=== PATIENT | female | born 1960 | race Caucasian/White ===

== ENCOUNTER → 2018-03-12 | Outpatient (CLI) | payer BC ==
--- NOTE | 2018-03-14 13:14 | MM ---
Reason for exam: screening (asymptomatic). Last mammogram was performed 4 years and 10 months ago. History: Patient is postmenopausal and had first child at age 44. Took hormonal contraceptives for 20 years. Physical Findings: A clinical breast exam by your physician is recommended on an annual basis and results should be correlated with mammographic findings. MG 3D Screening Mammo W/Cad Bilateral CC and MLO view(s) were taken. Prior study comparison: May 13, 2013, bilateral digital screening mammo w/CAD. April 11, 2006, workup right diagnostic mammogram. The breast tissue is heterogeneously dense. This may lower the sensitivity of mammography. No significant changes when compared with prior studies. ASSESSMENT: Benign, BI-RAD 2 RECOMMENDATION: Routine screening mammogram of both breasts in 1 year.
== END | disposition home or self-care (01) ==
LOC: RADMAMWWP 15:00
PROVIDERS: ATTEND Family Medicine
DX: Z12.31 Encounter for screening mammogram for malignant neoplasm of breast (principal)
CPT/HCPCS: 77063; 77067

== ENCOUNTER → 2018-08-08 | Outpatient (CLI) | payer BC ==
--- NOTE | 2018-08-08 21:58 | MR ---
EXAMINATION TYPE: MR tspine/lspine wo con DATE OF EXAM: 08/08/2018 COMPARISON: None HISTORY: Thoracic and Lumbar Radiculopathy CONTRAST: Performed utilizing 0 mL intravenous Gadavist gadolinium contrast. TECHNIQUE: Multiplanar, multiecho imaging on a 3.0 Siri magnet is performed through the thoracic spi ne. Spinal cord maintains normal signal through its visualized course. Vertebral body alignment is normal. Vertebral body heights are preserved. Disc heights are preserved. There is diffuse disc desiccation throughout the thoracic spine. T1-2: Left and right paracentral asymmetric bulge is present from the disc material. No AP spinal can al stenosis is present. Mild foraminal narrowing is present. No cord contact or spinal canal stenosis is present. T6: Hemangioma is within the T6 vertebral body. T7-8: There is a small central disc herniation with mild anterior thecal sac compression. No cord con tact is evident. No spinal canal stenosis or neural foraminal stenosis is present. T8-9: Mild broad-based disc bulge is present with mild to moderate anterior thecal sac compression sl ightly greater in the left paracentral region. No cord contact is evident. No spinal canal stenosis o r neural foraminal stenosis is present T11-12, T12-L1: Facet hypertrophy is mild posterior lateral thecal sac compression. No spinal canal s tenosis or cord contact is evident. Neural foramen are patent. Some signal change along the inferior aspect of the T10 vertebral level is hypointense on T1 and T2-w eighted sequences. This could be old injury. Acute injury is not identified. No loss of vertebral bod y height is evident. IMPRESSIONS: 1. Small central disc herniation with mild anterior thecal sac compression T7-8. 2. Mild asymmetric disc bulge in the central left paracentral canal T8-9 3. Additional levels with mild degenerative changes discussed above EXAMINATION TYPE: MR tspine/lspine wo con DATE OF EXAM: 08/08/2018 COMPARISON: None HISTORY: Thoracic and Lumbar Radiculopathy CONTRAST: 0 mL intravenous Gadavist. TECHNIQUE: Multiplanar, multisequence images of the lumbar spine were acquired. FINDINGS: Cord terminates at the L1 level. Chronic degenerative endplate changes are present L3-4. D isc heights appear preserved. Disc desiccation is present throughout the lumbar spine. L5-S1: No significant disc bulge or disc herniation. No spinal canal stenosis. No foraminal stenosi s. . L4-L5: Broad-based disc bulge has mild anterior thecal sac contact. Facet hypertrophy is posterior la teral thecal sac compression slightly greater on the left. No AP spinal canal stenosis present. Moder ate bilateral foraminal narrowing is present L3-L4: Mild disc bulge is present with anterior thecal sac flattening. Mild facet hypertrophy is pres ent. No spinal canal stenosis is present. There is moderate right and mild left foraminal narrowing. L2-L3: Broad-based disc bulge has mild anterior thecal sac flattening. No AP spinal canal stenosis pr esent. Neural foramen are patent L1-L2: No significant disc bulge or disc herniation. No spinal canal stenosis. No foraminal stenosi s. . T12-L1: No significant disc bulge or disc herniation. No spinal canal stenosis. No foraminal stenos is. Some facet hypertrophy is present at this level with posterior lateral thecal sac contact.. IMPRESSION: 1. Broad-based disc bulge L4-5 with mild anterior thecal sac contact. No spinal canal stenosis presen t. 2. Broad-based disc bulge L2-3 L3-4 with anterior thecal sac compression. No spinal canal stenosis is present. 3. Facet hypertrophy contributing to foraminal stenosis L3-4 L4-5.
== END | disposition home or self-care (01) ==
LOC: RADMRIMAIN 18:49
PROVIDERS: ATTEND Family Medicine
DX: M48.061 Spinal stenosis, lumbar region without neurogenic claudication (principal); M51.16 Intervertebral disc disorders with radiculopathy, lumbar region; M46.96 Unspecified inflammatory spondylopathy, lumbar region; M51.14 Intervertebral disc disorders with radiculopathy, thoracic region; M47.24 Other spondylosis with radiculopathy, thoracic region
CPT/HCPCS: 72146; 72148

== ENCOUNTER → 2018-08-24 | Outpatient (CLI) | payer BC ==
--- NOTE | 2018-08-24 17:13 | MR ---
EXAMINATION TYPE: MR cervical spine wo con DATE OF EXAM: 08/24/2018 COMPARISON: None HISTORY: Radiculopathy, cervical region TECHNIQUE: Multiplanar, multisequence images of the cervical spine were acquired. Cervical vertebra have normal alignment. There is slight narrowing and decreased signal in the disks at C5-6 C6-7. There are small posterior disc herniations at C5-6 and C6-7. There is developmentally a dequate spinal canal and no significant spinal stenosis. Cervical spinal cord has normal signal patte rn. There is no edema. Brainstem appears intact. There is no compression fracture. There is also post erior small disc herniations at C7-T1 and T2-T3 and T3-T4. I see no focal bone destruction. IMPRESSION: Multiple small posterior cervical disc herniations. No spinal stenosis. No fracture. Spinal canal jamie sures 9.5 mm at the level of cervical disc herniations.
== END | disposition home or self-care (01) ==
LOC: RADMRIMAIN 14:36
PROVIDERS: ATTEND Family Medicine
DX: M50.122 Cervical disc disorder at C5-C6 level with radiculopathy (principal)
CPT/HCPCS: 72141

== ENCOUNTER → 2020-04-30 | Outpatient (CLI) | payer BC ==
--- NOTE | 2020-04-30 17:52 | CT ---
EXAMINATION TYPE: CT brain wo/w con DATE OF EXAM: 04/30/2020 COMPARISON: CT brain 02/01/2016 HISTORY: migraines CT DLP: 2072.0 mGycm Automated exposure control for dose reduction was used. CONTRAST: CT scan of the head is performed without and with IV Contrast, patient injected with 100 mL of Isovue 300. FINDINGS: No acute intracranial hemorrhage, midline shift, or mass effect. No extra-axial fluid collection. The re is no abnormal enhancing mass. The ventricles and sulci are within normal limits in size. The gl obes are grossly symmetric. The visualized sinuses and mastoid air cells are clear. Calvarium is inta ct. IMPRESSION: No acute intracranial abnormality or enhancing masses seen.
== END | disposition home or self-care (01) ==
LOC: RADCTMAIN 14:28
PROVIDERS: ATTEND Family Medicine
DX: G43.909 Migraine, unspecified, not intractable, without status migrainosus (principal)
CPT/HCPCS: 70470; Q9967